=== PATIENT | male | born 1955 | race Caucasian/White ===

== ENCOUNTER 2024-09-24 19:14 | Emergency (ER) | payer OTHER, MEDICARE, SELFPAY ==
[2024-09-24 19:16] VITALS: BP 140/91
[2024-09-24 19:44] LABS: % Basophils 0.8 % (0-2); % Eosinophils 2.1 % (0-6); % Immature Granulocytes 0.3 % (0-0.5); % Lymphocytes 31.5 % (20.5-51.1); % Monocytes 8.7 % (1.7-9.3); % Neutrophils 56.6 % (42.2-75.2); Absolute Eosinophils 0.1 10^3/uL (0-0.7); Absolute Lymphocytes 1.2 10^3/uL (1.2-3.4); Absolute Monocytes 0.3 10^3/uL (0.1-0.6); Absolute Neutrophils 2.2 10^3/uL (1.4-6.5); Hematocrit 37.7 % (39.0-52.0); Hemoglobin 13.7 g/dL (13.0-18.0); Mean Corp Hgb Conc. 36.3 g/dL (33.0-37.0); Mean Corpuscular Hgb 32.9 pg (27.0-31.0); Mean Corpuscular Volume 90.4 fL (80.0-94.0); Mean Platelet Volume 9.6 fL (7.4-10.4); Nucleated Red Blood Cells % 0 % (-); Platelet Count 251 10^3/uL (130-400); Red Blood Cell Count 4.17 10^6/uL (4.70-6.10); Red Cell Dist. Width 12.3 % (11.5-14.5); White Blood Cell Count 3.9 10^3/uL (4.8-10.8)
[2024-09-24 19:59] LABS: ALT (SGPT) 58 U/L (0-50); AST (SGOT) 47 U/L (17-59); Albumin 4.5 g/dl (3.5-5.0); Alkaline Phosphatase 40 U/L (38-126); Blood Urea Nitrogen 17 mg/dl (9-20); Calcium 9.7 mg/dl (8.4-10.2); Carbon Dioxide 27 mmol/L (22-30); Chloride 102 mmol/L (98-107); Glucose 95 mg/dl (70-99); Potassium 4.5 mmol/L (3.5-5.1); Sodium 142 mmol/L (135-145); Total Bilirubin 0.8 mg/dl (0.2-1.3); Total Protein 6.9 g/dl (6.3-8.2); eGFR > 60.00
[2024-09-24 20:29] LABS: TSH 2.24 uIU/ml (0.47-4.68)
[2024-09-24 21:30] VITALS: BP 129/81; BMI 28.8
--- NOTE | 2024-09-24 22:12 | ED.GENMED ---
History of Present Illness
<ASHANTI Chatterjee - Last Filed: 09/24/24 23:58>
General
Chief Complaint: Cardiac Symptoms
Source: patient and significant other
Exam Limitations: none
Time Seen by Provider: 09/24/24 22:03
Nursing documentation reviewed up to this point in time: agreed with
History of Present Illness
History of Present Illness:
Patient is a 68yo M w/ PMH HLD who presents to ED after [employer] watch gave him alert that he was in a fib. He states that he has had multiple of the same alert over the past few weeks. 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
recently retired. Family hx of a fib in father & uncle and OH in father & brother. He denies any chest pain, palpitations, CASTRO, dizziness, fatigue, weakness, and N/V over past few weeks. He admits to some SOB. He admits to feelings of anxiety when
getting watch notifications. He admits to drinking alcohol 3-4 drinks 5x/week. reports occasional cigars but pt denies smoking. Denies drug use.
Past History
<ASHANTI Chatterjee - Last Filed: 09/24/24 23:58>
Past History
ED Past Medical History: Negative Asthma, HTN, Hypercholesterolemia or NIDDM
ED Past Surgical History: Orthopedic
Social History
Tobacco: Non-smoker
Living: with family
Employment: Employed
Review of Systems
<ASHANTI Chatterjee - Last Filed: 09/24/24 23:58>
Review of Systems
Constitutional: Denies fever, fatigue or chills
Respiratory: Reports trouble breathing; Denies cough
Cardiac: Denies chest pain, diaphoresis, palpitations or syncope
ABD/GI: Denies abdominal pain, nausea, vomiting, diarrhea or constipated
Musculoskeletal: Denies joint pain or muscle pain
Neurological: Denies dizzy, headache or weakness
Phy Exam
<Yanelis Bourne [facility] - Last Filed: 09/24/24 23:58>
General Physical Exam
General Presentation: well appearing
General age: appears stated age
General Skin: warm and dry
General Habitus: normal
General Mental: alert
Cardiovascular Exam
Cardiovascular Exam: regular rate/rhythm, no edema, no gallop and no murmur
Pulmonary Exam
Pulmonary Exam: lungs clear, no respiratory distress, no rales, no crackles, no rhonchi and no wheezing
Gastrointestinal Exam
Gastrointestinal Exam: normal bowel sounds, non tender, soft, no organomegaly and non distended
Neurological Exam
Neurological Exam: alert, oriented x3, no motor deficits and speech normal
Musculoskeletal Exam
Musculoskeletal Exam: no edema
<John Moore DO - Last Filed: 09/24/24 22:47>
Physical Exam
Physical Exam:
no acute distress
Course
<Yanelis Bourne [facility] - Last Filed: 09/24/24 23:58>
Orders/Labs/Results
Orders:
Orders
09/24/24 19:36
Complete Blood Count/With Diff Urgent
Comprehensive Metabolic Panel Urgent
Magnesium Urgent
TSH Urgent
Abnormal Lab Results
09/24/24
19:36
WBC 3.9 L 10^3/uL
(4.8-10.8)
RBC 4.17 L 10^6/uL
(4.70-6.10)
Hct 37.7 L %
(39.0-52.0)
MCH 32.9 H pg
(27.0-31.0)
ALT 58 H U/L
(0-50)
09/24/24 19:36
09/24/24 19:36
Vital Signs
Initial and Last Documented VS:
Initial Vital Signs
Temp Pulse Resp BP Pulse Ox
98.7 F 59 20 140/91 99
09/24/24 19:16 09/24/24 19:16 09/24/24 19:16 09/24/24 19:16 09/24/24 19:16
Last Documented Vital Signs
Temp Pulse Resp BP Pulse Ox
98.7 F 66 20 116/85 95
09/24/24 19:16 09/24/24 22:58 09/24/24 22:58 09/24/24 22:58 09/24/24 22:58
<John Moore, DO - Last Filed: 09/24/24 22:47>
Orders/Labs/Results
Orders:
Orders
09/24/24 19:36
Complete Blood Count/With Diff Urgent
Comprehensive Metabolic Panel Urgent
Magnesium Urgent
TSH Urgent
Abnormal Lab Results
09/24/24
19:36
WBC 3.9 L 10^3/uL
(4.8-10.8)
RBC 4.17 L 10^6/uL
(4.70-6.10)
Hct 37.7 L %
(39.0-52.0)
MCH 32.9 H pg
(27.0-31.0)
ALT 58 H U/L
(0-50)
09/24/24 19:36
09/24/24 19:36
Vital Signs
Initial and Last Documented VS:
Initial Vital Signs
Temp Pulse Resp BP Pulse Ox
98.7 F 59 20 140/91 99
09/24/24 19:16 09/24/24 19:16 09/24/24 19:16 09/24/24 19:16 09/24/24 19:16
Last Documented Vital Signs
Temp Pulse Resp BP Pulse Ox
98.7 F 66 20 116/85 95
09/24/24 19:16 09/24/24 22:58 09/24/24 22:58 09/24/24 22:58 09/24/24 22:58
<ASHANTI Chatterjee - Last Filed: 09/24/24 23:58>
MDM/Problems Addressed
Differential Diagnosis Includes:
paroxysmal a fib, watch malfunction, other arrhythmia
<John Moore DO - Last Filed: 09/24/24 22:47>
MDM/Problems Addressed
MDM/Problems Addressed:
68-year-old male with PACs, no atrial fibrillation seen. Patient asymptomatic. Stable for discharge.
<ASHANTI Chatterjee - Last Filed: 09/24/24 23:58>
*Critical Care Note
Total Time (30-74mins, 75-104mins- exclusive of procedures): Not Applicable
<John Moore DO - Last Filed: 09/24/24 22:47>
*Pulse Oximetry
Patient hypoxic: no
*EKG
Interpreted by ED Provider?: Yes
EKG Intrepretation Date: 09/24/24
EKG Intrepretation Time: 19:31
Interpretation: abnormal
Comparison EKG: no comparison EKG present
Heart Rate: 60
Rate: normal
Rhythm: sinus and PAC's
[place]: normal axis
Interval: normal interval
QRS Pattern: normal QRS
Ischemia: no ischemia
*Power Builder Developer Interpretation
Rate: normal
Interpretation: abnormal
Heart Rate: 62
Rhythm: sinus and PAC's
<John Moore DO - Last Filed: 09/24/24 22:47>
Patient Management
Social determinants of health affecting care: Living situation
Escalation/DeEscalation of care consider admission/obs:
admit not indicated
ED Attending Note
<ST SenPA - Last Filed: 09/24/24 23:58>
-
Portions of this chart may have been created with voice recognition software.� Occasional wrong word or��sound alike� substitutions may have occurred due to the inherent limitations of voice recognition software.
<John Moore, - Last Filed: 09/24/24 22:47>
ED Attending Note
Patient seen and examined by attending physician: Yes
I performed a history and physical exam of patient and discussed management with resident, I reviewed resident's note and agree with documented findings and plan of care.: Yes
ED Attending Note:
I have reviewed and agree with history and treatment plan by Yanelis Bourne. My exam revealed 68-year-old male in no acute distress.
Physical Exam
General: no apparent distress, not acutely ill
Neck: supple. no meningeal signs. normal posterior pharynx
Heart: s1/s2 regular rate and rhythm, no murmur. equal radial
pulses.
HEENT: Pupils equal round reactive to light, EOMI
Lungs: no acute respiratory distress. clear bilaterally
Abdomen: normal bowel sounds. not tender. no CVAT
Neuro: alert and oriented. no focal neurological deficits cranial nerves II through XII intact
Skin: no rash
Psychiatric: well kept. interactive and cooperative
Extremities: no edema. no calf tenderness. negative homans. good distal pulses
Patient has PACs, no atrial fibrillation seen on monitor and EKG. Patient stable for discharge and follow-up with cardiology for Holter monitor.
Discharge Plan
Departure
Patient Disposition: Home (Routine Discharge)
Date of Disposition: 09/24/24
Time of Disposition: 22:39
Patient with high blood pressure during this ER visit?: Yes
Condition: Good
Discharge Problem:
Atrial contractions, premature
Instructions: Palpitations ED, BLOOD PRESSURE
Prescriptions:
No Action
rosuvastatin [Crestor] 20 mg Tablet
20 mg PO DAILY
Referrals:
Juice Lu DO [Family Provider] -
Rashad Murray MD [Active] - Call in 1-3 days for appt
Interventions
Interventions:
*Risk Screen - Suicide Last Done: 09/24/24 21:35
*General Assessment Last Done: 09/24/24 19:16
*Neglect/Abuse Screening Last Done: 09/24/24 21:35
ED- Fall Risk Assessment Last Done: 09/24/24 21:35
*ED COVID-19 Vaccine History Last Done: 09/24/24 21:34
*Nursing Disposition Last Done: 09/24/24 22:58
ED- Pulmonary Assessment Last Done: 09/24/24 21:35
ED- Cardiac Assessment Last Done: 09/24/24 21:35
Discharge Date and Time
Discharge Date/Time: 09/24/24 23:00
Print Language: KOREAN
Assessment and Plan
<ASHANTI Chatterjee - Last Filed: 09/24/24 23:58>
Assessment and Plan
(1) Atrial contractions, premature:
Status: Acute
Plan:
Follow-up w/ cardiology for Holter monitoring.
<John Moore DO - Last Filed: 09/24/24 22:47>
Assessment and Plan
(1) Atrial contractions, premature:
[2024-09-24 22:55] VITALS: BP 116/85
[2024-09-24 22:58] VITALS: BP 116/85
== END 2024-09-24 23:00 | disposition home or self-care (01) ==
LOC: EMR 19:14
PROVIDERS: Student in an Organized Health Care Education/Training Program; EMERGENCY PHYSICIAN Emergency Medicine; FAMILY PHYSICIAN Internal Medicine
DX: I48.91 Unspecified atrial fibrillation (principal); E78.00 Pure hypercholesterolemia, unspecified; Z82.49 Family history of ischemic heart disease and other diseases of the circulatory system
CPT/HCPCS: 99283; 80053; 83735; 84443; 85025; 93005

== ENCOUNTER → 2024-12-08 13:27 | Outpatient (REF) | payer MEDICARE, SELFPAY | LOC: DHSLP 13:27 | PROVIDERS: ATTENDING PHYSICIAN Internal Medicine Cardiovascular Disease; FAMILY PHYSICIAN Internal Medicine | DX: G47.30 Sleep apnea, unspecified (principal); R06.83 Snoring | CPT/HCPCS: 95800 ==